=== PATIENT | female | born 1995 | race Caucasian/White ===

== ENCOUNTER 2020-03-15 14:33 | Inpatient (IN) ==
[2020-03-15] MEDS ORDERED: OXYTOCIN 30 UNITS/500 ML BAG IV PRN ×2 (15:12→22:14)
[2020-03-15] MEDS: LACTATED RINGER'S 1,000 ML IV PRN ×2 (15:35→17:38)
[2020-03-15 15:40] LABS: Hematocrit (blood only) 39.6 % (37-47); Hemoglobin 13.3 g/dL (12.0-16.0); Mean Corpuscular Hemoglobin 28.6 pg (25-34); Mean Corpuscular Volume 85.2 fL (80-100); Mean Platelet Volume 11.5 fL (7.4-10.4); Platelet Count 212 K/uL (130-400); RDW Coefficient of Variation 21.6 % (11.5-14.5); RDW Standard Deviation 65.5 fL (36.4-46.3); Red Blood Count 4.65 M/uL (4.2-5.4)
[2020-03-15 15:47] LABS: Mean Corpuscular Hgb Conc 33.6 g/dL (32-36)
[2020-03-15] MEDS ORDERED: ePHEDrine sulfate 50 MG/ML AMP ONE (15:47)
[2020-03-15] MEDS ORDERED: SODIUM CHLORIDE 0.9% INJ 10 ML VIAL ONE (15:47)
[2020-03-15] MEDS ORDERED: BUPIVACAINE 0.25% 30 ML VIAL ONE (15:47)
[2020-03-15] MEDS ORDERED: fentaNYL 2MCG/ML ROPIVACAINE 1.25MG/ML 100 ML BAG EPI ONE (15:48)
[2020-03-15] MEDS ORDERED: fentaNYL citrate 100 MCG/2 ML VIAL ONE (15:48)
[2020-03-15] MEDS ORDERED: diphenhydrAMINE 50 MG/ML VIAL IV PRN (16:31)
[2020-03-15] MEDS ORDERED: fentaNYL 2MCG/ML ROPIVACAINE 1.25MG/ML 100 ML BAG EPI PRN (16:31)
[2020-03-15] MEDS ORDERED: NALOXONE HCL 0.4 MG/1 ML VIAL/CARP IV PRN (16:31)
[2020-03-15] MEDS ORDERED: ONDANSETRON INJ 2 MG/ML 2 ML VIAL IV PRN (16:31)
[2020-03-15] MEDS ORDERED: ePHEDrine sulfate 50 MG/ML AMP IV PRN (16:31)
[2020-03-15] MEDS ORDERED: PROMETHAZINE HCL 6.25 MG in SODIUM CHLORIDE 0.9% 50 ML IV PRN (16:31)
[2020-03-15] MEDS ORDERED: NALOXONE HCL 1 MG in SODIUM CHLORIDE 0.9% 1000ML 1,000 ML IV PRN (16:31)
--- NOTE | 2020-03-15 16:31 | Anesthesiology Consultation ---
Date of Service March 15, 2020 Assessment & Plan (1) Encounter for pre-operative examination: Chart Review Chart Review: Patient NOT seen in Pre Admission Testing and Acceptable Risk for Labor Epidural Consults Requested none ASA ASA2 Proposed Anesthesia Anesthesia Type: Labor Epidural Risk / Benefits Reviewed With: PT / POA / Parent / Guardian, Accepts Plan and Informed Consent Obtained History Height/Weight Height: 5 ft 3 in Weight: 54.885 kg Allergies Allergy/AdvReac Type Severity Reaction Status Date / Time No Known Allergies Allergy Verified 03/15/20 13:45 Medications Home Medications Medication Instructions Recorded Confirmed Last Taken prenat.vits,kevin,ycq-tvri-iwjhl 1 tab PO DAILY 08/03/19 03/15/20 03/13/20 09:00 ferrous sulfate [iron] 325 mg PO DAILY 03/15/20 03/15/20 Unknown Active Medications Generic Name Dose Route Start Last Admin Trade Name Freq PRN Reason Stop Dose Admin Lactated Ringer's 1,000 mls @ 125 mls/hr 03/15/20 15:12 03/15/20 15:35 Lr IV 03/17/20 15:11 999 mls/hr .Q8H PRN Administration L&D Protocol Protocol Past Medical History Medical History Breast lump or mass Encounter for anatomic survey Varicella vaccine Exercise / Class Metabolic Activity II 4-5 Yardwork/Stairs/Walk up hill Past Family History Family History Grandfather (Maternal) Diabetes Past Surgical History Surgical History H/O breast biopsy Past Anesthesia History No Hx of Anesthesia Complications and No Family Hx of Anesthesia Complications History of PONV No Hx of PONV and No Hx of Motion Sickness Social History Smoking Status: Never smoker Hx Alcohol Use: No Hx Substance Use: No substance use type: does not use Physical Exam Vital Signs Last Vital Signs Temp 37.0 C 03/15/20 15:18 Pulse 100 H 03/15/20 16:30 Resp 20 03/15/20 15:18 BP 110/67 03/15/20 16:29 Pulse Ox 99 03/15/20 16:30 ENMT Mouth: no dentition abnormality Thyromental Distance: > or= 3.5 Finger Breadths Mallampati Class: II Neck normal visual inspection Respiratory normal respiratory effort Auscultation: lungs clear to auscultation bilaterally Cardiovascular Rate/Rhythm: regular rate and regular rhythm Psychiatric Orientation: alert Testing Laboratory Results 03/15/20 15:30
--- NOTE | 2020-03-15 18:36 | History & Physical Report ---
Date of Service March 15, 2020 Assessment & Plan (1) Supervision of normal intrauterine in primigravida: 24yo at 40.4 weeks GA. Labor 1. Fetus: Cat 1 2. Labor: Progressing un-augmented. Will AROM when able 3. Vitals: WNL 4. GBS negative 5. Anemia: Improved on todays labs. Type and screen ordered (2) Anemia affecting : Admission and Anticipated Discharge Date Admission Date: March 15, 2020 History of Present Illness Primary Care Provider: NO PCP 24yo at 40.4 weeks GA. Presents in labor. complicated by iron deficiency anemia. OB Labs: Blood Type AB Positive 08/10/19 Antibody Screen NEGATIVE 08/10/19 Hemoglobin 12.0 g/dL (12.0-16.0) 02/23/20 Hematocrit 36.5 % (37-47) L 02/23/20 Mean Corpuscular Volume 83.9 fL (80-100) 02/23/20 Platelet Count 236 K/uL (130-400) 02/23/20 Rubella IgG Antibody Immune (Immune) 08/10/19 Rapid Plasma Reagin Nonreactive (Nonreactive) 08/10/19 Hepatitis B Surface Antigen Neg (Neg) 08/10/19 HIV (1&2) Ab and P24 Ag, 4th Gener Neg (Neg) 08/10/19 Glucose 1 Hour 50 gm Load 163 mg/dl (70-130) H 12/21/19 OB Optional Labs: Hemoglobin Electrophoresis Interp see note 01/05/20 Chlamydia trachomatis RNA NOT DETECTED (NOT DETECTED) 08/10/19 Neisseria gonorrhoeae RNA NOT DETECTED (NOT DETECTED) 08/10/19 Labs Reviewed: declined cf/sma/genetics--akh 2HR GTT (01/05/20) Fasting 83 1 Hr 155 2 Hr 127 gbs neg Allergies Allergy/AdvReac Type Severity Reaction Status Date / Time No Known Allergies Allergy Verified 03/15/20 13:45 Home Medications Home Medications Medication Instructions Recorded Confirmed Type prenat.vits,kevin,zzt-zqxs-uxult 1 tab PO DAILY 08/03/19 03/15/20 History ferrous sulfate [iron] 325 mg PO DAILY 03/15/20 03/15/20 History Patient History Medical History Breast lump or mass Encounter for anatomic survey Varicella vaccine Surgical History H/O breast biopsy Family History Grandfather (Maternal) Diabetes Social History (Updated 08/03/19 @ 13:07 by Ayse Richardson) Smoking Status: Never smoker Hx Alcohol Use: No Hx Substance Use: No Preferred Language: Thai Communication Ability: Effective Beliefs That Will Affect Care: None marital status: marital status details: Anthony Quintero (27) [phone] Current Living Situation: Spouse Current Living Situation Comment: lives with with his brother, no pets current occupational status: employed current occupation: [employer] ([employer]) Other Information That Helps Us Care for You: No Feels Safe at Home: Yes Safety Concerns: Feels Safe At This Time Childhood Exposure to Second-Hand Smoke: No Diet Comment: no eggs, no milk caffeine: Yes during the past year weight has: remained stable Dental Care, Regularly: Yes Physical Activity Frequency: Does not Exercise Seatbelt Use: always Sexual Activity: has been sexually active within the last 12 months Assistive Devices: None Physical Exam Constitutional: WD/WN, vitals as above Gastrointestinal (Abdomen): Percussion/Palpation: abdomen soft; abdomen nontender, no guarding and abdomen not rigid Psychiatric: A+Ox3, euthymic affect Genitourinary: OB Exam Abdomen: + vertex Manual OB Exam: + cervical dilation 4 cm, + cervical effacement 80% and + station 0 OB Exam Monitor Tracing: + external FHT monitor used, + external uterine monitor used, + category I and + normal FHT variability; no early decelerations present, no late decelerations present and no variable decelerations Results & Data ([facility] [place]) Vital Signs (Past 12 Hours) Vital Signs Temp Pulse Resp BP Pulse Ox 03/15/20 16:29 110/67 03/15/20 16:27 110 H 115/69 03/15/20 16:25 86 125/69 100 03/15/20 16:23 79 128/83 03/15/20 16:20 91 H 100 03/15/20 16:15 116 H 98 03/15/20 16:07 104 H 100 03/15/20 16:02 90 98 10/27/20 15:57 87 99 03/15/20 15:52 97 H 100 03/15/20 15:18 37.0 C 82 20 122/84 03/15/20 14:47 82 122/84 Coding Level of Care Code None Diagnoses Supervision of normal intrauterine in primigravida Z34.00 Anemia affecting O99.019
--- NOTE | 2020-03-15 18:40 | Labor Progress Brief Note ---
Date of Service March 15, 2020 Subjective Reason For Note: Routine Evaluation Assessment & Plan (1) Supervision of normal intrauterine in primigravida: 24yo at 40.4 weeks GA. Labor 1. Fetus: Cat 1 2. Labor: Progressing un-augmented. Will AROM when able 3. Vitals: WNL 4. GBS negative 5. Anemia: Improved on todays labs. Type and screen ordered (2) Anemia affecting : Admission and Anticipated Discharge Date Admission Date: March 15, 2020 Physical Exam Genitourinary: OB Exam Abdomen: + vertex Manual OB Exam: + cervical dilation 8 cm, + cervical effacement 100%, + station + 1 and + amniotic fluid clear OB Exam Monitor Tracing: + external FHT monitor used, + external uterine monitor used, + category I and + normal FHT variability; no early decelerations present, no late decelerations present and no variable decelerations Results & Data ([facility] [place]) Vital Signs (Past 12 Hours) Vital Signs Temp Pulse Resp BP Pulse Ox 03/15/20 18:35 126 H 100 03/15/20 18:30 124 H 100 03/15/20 18:26 97 H 122/74 03/15/20 18:25 109 H 100 03/15/20 18:20 126 H 99 03/15/20 18:15 120 H 98 03/15/20 18:12 90 114/73 03/15/20 18:10 119 H 98 03/15/20 18:05 107 H 98 03/15/20 18:00 119 H 99 03/15/20 17:56 100 H 16 111/68 03/15/20 17:55 104 H 98 03/15/20 17:50 127 H 99 03/15/20 17:45 117 H 98 03/15/20 17:41 90 113/69 03/15/20 17:40 94 H 96 03/15/20 17:35 96 H 98 03/15/20 17:30 99 H 98 03/15/20 17:26 122 H 116/73 03/15/20 17:25 96 H 97 03/15/20 17:20 101 H 98 03/15/20 17:15 99 H 97 03/15/20 17:10 110 H 99 03/15/20 17:08 93 H 115/73 03/15/20 17:05 97 H 99 03/15/20 17:03 117 H 116/75 03/15/20 17:00 136 H 99 03/15/20 16:55 112 H 99 03/15/20 16:52 100 H 115/69 03/15/20 16:50 90 100 03/15/20 16:47 95 H 108/70 03/15/20 16:45 114 H 100 03/15/20 16:42 97 H 111/71 03/15/20 16:40 107 H 100 03/15/20 16:37 96 H 116/69 03/15/20 16:35 103 H 99 03/15/20 16:31 100 H 111/67 03/15/20 16:30 100 H 99 03/15/20 16:29 100 H 110/67 03/15/20 16:27 110 H 115/69 03/15/20 16:25 86 125/69 100 03/15/20 16:23 79 128/83 03/15/20 16:20 91 H 100 03/15/20 16:15 116 H 98 03/15/20 16:07 104 H 100 03/15/20 16:02 90 98 03/15/20 15:57 87 99 03/15/20 15:52 97 H 100 03/15/20 15:18 37.0 C 82 20 122/84 03/15/20 14:47 82 122/84 Coding Level of Care Code None Diagnoses Supervision of normal intrauterine in primigravida Z34.00 Anemia affecting O99.019
[2020-03-15] MEDS ORDERED: LIDOCAINE HCL 1% 20 ML VIAL ONE (21:30)
[2020-03-15] MEDS ORDERED: METHYLERGONOVINE MALEATE 0.2 MG/ML AMP ONE (21:31)
[2020-03-15] MEDS ORDERED: BENZOCAINE 20% AER SPR 82.5 GM CAN EXT PRN (22:14)
[2020-03-15] MEDS ORDERED: DIPHTHERIA/TETANUS/PERTUSSIS 0.5 ML SYR/VIAL IM ONE (22:14)
[2020-03-15] MEDS ORDERED: HYDROCORTISONE ACETATE 25 MG SUPP PR PRN (22:14)
[2020-03-15] MEDS ORDERED: METHYLERGONOVINE MALEATE 0.2 MG/ML AMP IM ONE (22:14)
[2020-03-15] MEDS ORDERED: ACETAMINOPHEN 325 MG TAB PO PRN (22:14)
[2020-03-15] MEDS ORDERED: SUPERCREAM 0.870% 15 GM JAR EXT PRN (22:14)
[2020-03-15] MEDS ORDERED: bisacodyL 10 MG SUPP PR PRN (22:14)
--- NOTE | 2020-03-15 22:25 | Anesthesia Procedure Note ---
Date of Service March 15, 2020 Anesthesia Post Epidural Note Vital Signs Vital Signs: Temp Pulse Resp BP Pulse Ox 37.2 C 94 H 18 124/81 100 03/15/20 19:02 03/15/20 22:16 03/15/20 19:02 03/15/20 22:16 03/15/20 22:00 Pain Intensity Bilateral Lower Abdomen: Pain Intensity: 0 Notes Mental Status: alert / awake / arousable Nausea / Vomiting: adequately controlled Pain: adequately controlled Airway Patency, RR, SpO2: stable & adequate BP & HR: stable & adequate Hydration State: stable & adequate Neuraxial Anesthesia: was administered and sensory block is resolving Anesthetic Complications: no major complications apparent and Pt Satisfied with anesthetic care Epidural: Removed without complications and With tip intact
[2020-03-15] MEDS: IBUPROFEN 600 MG TAB PO PRN (23:39)
--- NOTE | 2020-03-16 00:44 | Delivery Summary ---
DATE OF OPERATION: 03/15/2020 PROCEDURE: Normal spontaneous vaginal delivery with second-degree perineal and bilateral sulcal laceration repairs. SURGEON: Santiago Grimm MD PREOPERATIVE DIAGNOSES: 1. Single intrauterine at 40 weeks 4 days gestational age. 2. Iron deficiency anemia in . POSTOPERATIVE DIAGNOSES 1. Single intrauterine at 40 weeks 4 days gestational age. 2. Iron deficiency anemia in . 3. Status post delivery. ESTIMATED BLOOD LOSS: 400 mL. DRAINS: Straight cath at the completion of the case. COMPLICATIONS: None. FINDINGS: A viable male infant with weight pending, Apgars of 9 and 9 at 1 and 5 minutes respectively. INDICATIONS: Ms. Thompson is a 24-year-old G1, P0, admitted at 40 weeks 4 days gestational age in active labor. The patient progressed in labor without augmentation. She did undergo artificial rupture of membranes for clear fluid and received an epidural for anesthesia. She progressed to complete-complete +2 station and pushed for approximately 20 minutes to achieve delivery. DESCRIPTION OF PROCEDURE: The patient progressed to 10 cm dilated, 100% effaced, +2 station, pushed over intact perineum with epidural anesthesia and delivered a viable male , weight and Apgars as noted above. Head of delivered in JEFF position, rest into right transverse. Two nuchal cords were noted which were easily reduced. Body and shoulders quickly followed. was noted to be vigorous upon delivery and a 1-minute delayed cord clamping was initiated. Cord was then double clamped and cut. Attention was then turned to delivery of the placenta, which was delivered intact. A 3-vessel cord, gentle cord traction. On inspection of the perineum, vagina, and cervix, there was noted to be bilateral sulcal lacerations and a second-degree perineal laceration. Bilateral sulcal lacerations were repaired with a continuous running locked stitch of 3-0 Vicryl. The perineal laceration was repaired with traditional crown stitch of 3-0 Vicryl. The needle, sponge, and instrument counts were correct at the completion of the case with mother and stable in the immediate post-delivery period. I attest to the content of the Intraoperative Record and any orders documented therein. Any exception s are noted below.
[2020-03-16] MEDS: IBUPROFEN 600 MG TAB PO PRN ×3 (05:34→19:36)
--- NOTE | 2020-03-16 06:14 | Obstetrical Progress Note ---
Date of Service <Rigo Funez MD - Last Filed: 03/16/20 07:16> March 16, 2020 Assessment & Plan <Rigo Funez MD - Last Filed: 03/16/20 07:16> (1) : - PNL: Rh pos, RI, GBS neg, COVID neg - Feels well today. Eating well, voiding well, ambulating well - Pain well controlled with ibuprofen 600mg Q4H PRN - Routine care -- OOB, ambulation, diet progression as tolerated - After discharge will have 6 week follow-up with Dr. Grimm Day #:: 1 Subjective <Rigo Funez MD - Last Filed: 03/16/20 07:16> Donna is a 24 y/o female who is PPD #1 following at 40 4/7 weeks. She reports feeling well overall this morning. Light abdominal cramping and 5/10 pain well managed on analgesics. Voiding well. Tolerating meals overnight without difficulty. Patient has been able to ambulate some. Has persistent lochia with some improvement this morning. Currently . Review of Systems Denies fever or chills. Denies shortness of breath or cough. Denies chest pain. Denies breast pain. Denies dysuria. Denies leg pain or leg swelling. Denies headache or changes in vision. Physical Exam <Rigo Funez MD - Last Filed: 03/16/20 07:16> General: Alert, oriented. No acute distress. Cardiac: Regular rate and rhythm. No murmurs. Respiratory: Clear to auscultation bilaterally a/p, no wheezes/rales/rhonchi. No increased work of breathing. Symmetrical chest rise. No respiratory distress. Abdomen: Soft, nontender, nondistended. Bowel sounds present. Uterus: Uterine fundus firm, palpable 1 cm below umbilicus. Lower Extremities: No lower extremity edema or swelling. No deep calf pain. Rajiv's negative bilaterally. Results & Data ([facility]) <Rigo Funez MD - Last Filed: 03/16/20 07:16> Vital Signs (Past 12 Hours) Vital Signs Temp Pulse Pulse Resp BP BP Pulse Ox 03/16/20 03:30 36.2 C L 89 14 105/69 97 03/16/20 01:00 37.0 C 72 16 115/74 98 03/16/20 00:18 107 H 113/68 03/16/20 00:15 106 H 119/65 03/16/20 00:01 37.2 C 110 H 18 123/67 03/15/20 23:46 98 H 128/75 03/15/20 23:31 113 H 18 124/65 03/15/20 23:16 110 H 121/58 L 03/15/20 23:05 101 H 108/64 03/15/20 23:01 37.0 C 104 H 16 134/92 03/15/20 22:46 105 H 16 136/79 03/15/20 22:31 108 H 18 135/78 03/15/20 22:16 94 H 16 124/81 03/15/20 22:00 97 H 18 134/79 100 03/15/20 21:55 102 H 99 03/15/20 21:50 103 H 99 03/15/20 21:45 96 H 99 03/15/20 21:40 102 H 98 03/15/20 21:35 106 H 99 03/15/20 21:32 108 H 132/77 03/15/20 21:30 104 H 99 03/15/20 21:26 111 H 134/86 03/15/20 21:25 105 H 98 03/15/20 21:20 108 H 99 03/15/20 21:15 116 H 97 03/15/20 21:10 113 H 100 03/15/20 21:05 122 H 98 03/15/20 21:00 104 H 100 03/15/20 20:56 106 H 143/72 H 03/15/20 20:55 100 H 99 03/15/20 20:50 111 H 98 03/15/20 20:45 107 H 97 03/15/20 20:41 107 H 131/82 03/15/20 20:40 100 H 99 03/15/20 20:35 102 H 99 03/15/20 20:30 109 H 99 03/15/20 20:27 111 H 141/85 H 03/15/20 20:25 115 H 99 03/15/20 20:20 106 H 98 03/15/20 20:15 105 H 98 03/15/20 20:11 108 H 120/80 03/15/20 20:10 113 H 98 03/15/20 20:05 110 H 99 03/15/20 20:00 99 H 99 03/15/20 19:57 100 H 121/65 03/15/20 19:55 107 H 99 03/15/20 19:50 115 H 99 03/15/20 19:45 115 H 99 03/15/20 19:41 96 H 107/65 03/15/20 19:40 112 H 99 03/15/20 19:35 101 H 98 03/15/20 19:30 101 H 98 03/15/20 19:26 114 H 129/59 L 03/15/20 19:25 107 H 98 03/15/20 19:20 101 H 98 03/15/20 19:15 101 H 98 03/15/20 19:10 120 H 98 03/15/20 19:05 120 H 99 03/15/20 19:02 37.2 C 18 03/15/20 19:00 117 H 98 03/15/20 18:58 118 H 123/85 03/15/20 18:55 110 H 98 03/15/20 18:50 115 H 100 03/15/20 18:45 117 H 100 03/15/20 18:41 111 H 119/81 03/15/20 18:40 116 H 99 03/15/20 18:35 126 H 100 03/15/20 18:30 124 H 100 03/15/20 18:26 97 H 122/74 03/15/20 18:25 109 H 100 03/15/20 18:20 126 H 99 03/15/20 18:15 120 H 98 <Santiago Grimm MD - Last Filed: 03/16/20 08:43> Co-Signing Physician Notes Patient evaluated and agree with the above findings and plan. Routine care Resident Activity Tracking <Rigo Funez MD - Last Filed: 03/16/20 07:16> Resident Involvement: Resident Care Provided Care Provided: OB Delivery
[2020-03-16 06:55] LABS: Hematocrit (blood only) 34.4 % (37-47); Hemoglobin 11.3 g/dL (12.0-16.0)
[2020-03-16] MEDS: DOCUSATE SODIUM 100 MG CAP PO SCH ×2 (08:20→20:53)
[2020-03-16] MEDS: FERROUS SULFATE 325 MG TAB PO SCH (08:20)
[2020-03-16] MEDS: PRENATAL VITAMIN 1 TAB PO SCH (08:20)
[2020-03-16] MEDS ORDERED: bisacodyL 5 MG TABEC PO SCH (20:00)
[2020-03-17] MEDS: IBUPROFEN 600 MG TAB PO PRN (05:12)
--- NOTE | 2020-03-17 06:27 | Obstetrical Progress Note ---
Date of Service <Rigo Funez MD - Last Filed: 03/17/20 07:04> March 17, 2020 Assessment & Plan <Rigo Funez MD - Last Filed: 03/17/20 07:04> (1) : - PNL: Rh pos, RI, GBS neg, COVID neg - Feels well today. Eating well, voiding well, ambulating well - Pain well controlled with ibuprofen 600mg Q4H PRN - Routine care -- OOB, ambulation, diet progression as tolerated - After discharge will have 6 week follow-up with Dr. Grimm - Plan for discharge today Day #:: 2 Subjective <Rigo Funez MD - Last Filed: 03/17/20 07:04> Donna is a 24 y/o female who is PPD #2 following at 40 4/7 weeks. She reports feeling well overall this morning. Light abdominal cramping and minimal pain well managed on analgesics. Voiding well. Tolerating meals overnight without difficulty. Patient has been able to ambulate some. Has persistent lochia with some improvement this morning. Currently . Review of Systems Denies fever or chills. Denies shortness of breath or cough. Denies chest pain. Denies breast pain. Denies dysuria. Denies leg pain or leg swelling. Denies headache or changes in vision. Physical Exam <Rigo Funez MD - Last Filed: 03/17/20 07:04> General: Alert, oriented. No acute distress. Cardiac: Regular rate and rhythm. No murmurs. Respiratory: Clear to auscultation bilaterally a/p, no wheezes/rales/rhonchi. No increased work of breathing. Symmetrical chest rise. No respiratory distress. Abdomen: Soft, nontender, nondistended. Bowel sounds present. Uterus: Uterine fundus firm, palpable 2 cm below umbilicus. Lower Extremities: No lower extremity edema or swelling. No deep calf pain. Rajiv's negative bilaterally. Results & Data ([facility]) <Rigo Funez MD - Last Filed: 03/17/20 07:04> Vital Signs (Past 12 Hours) Vital Signs Temp Pulse Resp BP Pulse Ox 03/16/20 23:30 36.5 C 87 17 117/78 99 03/16/20 20:50 36.7 C 87 16 105/70 97 <Margaret Warren MD, FACOG - Last Filed: 03/17/20 07:44> Co-Signing Physician Notes Resident Physician Supervision Note: I was present with Dr. Bal during the history and exam. I discussed the case with the resident and agree with the findings and plan as documented in the note. Any exceptions or clarifications are listed here: [None] Documented By: Margaret Warren MD, FACOG Resident Activity Tracking <Rigo Funez MD - Last Filed: 03/17/20 07:04> Resident Involvement: Resident Care Provided Care Provided: OB Delivery
[2020-03-17] MEDS: PRENATAL VITAMIN 1 TAB PO SCH (08:05)
[2020-03-17] MEDS: FERROUS SULFATE 325 MG TAB PO SCH (08:05)
[2020-03-17] MEDS: DOCUSATE SODIUM 100 MG CAP PO SCH (08:05)
== END 2020-03-17 12:10 | disposition home or self-care (01) | DRG 807 ==
LOC: OPB 14:33 → 4S1 14:34 → 4S2 03-16 01:09 → EDSTATUS 03-16 14:33